=== PATIENT | male | born 1985 | race Two or more races ===

== ENCOUNTER 2018-10-22 14:52 | Emergency (ER) | payer SELFPAY ==
[~2018-10-22] VITALS: Ht 154.9 cm; Wt 77.0 kg
[2018-10-22] MEDS ORDERED: IBUPROFEN 600MG TABLET PO ONE (17:30)
[2018-10-22] MEDS ORDERED: BACITRACIN ZINC OINT UDPKT TOP ONE (17:30)
[2018-10-22] MEDS ORDERED: BACITRACIN 15GM TUBE TOP NR (18:30)
[2018-10-22 18:47] VITALS: BP 128/80
== END 2018-10-22 18:48 | disposition home or self-care (01) ==
LOC: ER 14:52
DX: S52.592A Other fractures of lower end of left radius, initial encounter for closed fracture (principal); S09.8XXA Other specified injuries of head, initial encounter; S80.812A Abrasion, left lower leg, initial encounter; S80.211A Abrasion, right knee, initial encounter; S00.511A Abrasion of lip, initial encounter; F12.10 Cannabis abuse, uncomplicated; V17.0XXA Pedal cycle driver injured in collision with fixed or stationary object in nontraffic accident, initial encounter; Y93.89 Activity, other specified; Y92.488 Other paved roadways as the place of occurrence of the external cause
CPT/HCPCS: 73110; 73130; 99283